=== PATIENT | male | born 1950 | race Caucasian/White ===

== ENCOUNTER → 2017-02-20 | Outpatient (CLI) | payer MEDICARE, OTHER | LOC: MW.CHUR 08:00 | PROVIDERS: ATTEND Urology | DX: Z71.89 Other specified counseling (principal) ==

== ENCOUNTER 2018-03-08 09:28 | Day surgery (SDC) | payer MEDICARE, OTHER ==
[~2018-03-08 09:28] MED LIST: Lactated Ringers 1,000 ML IV SCH
--- NOTE | 2018-03-08 10:53 | PCM.PREANE ---
Preanesthetic Assessment - Anesthesia/Transfusion/Family Hx Anesthesia History: Prior Anesthesia Without Reaction Other Type of Anesthesia Reaction Comment: "brother gets very confused after anesthesia" Family History of Anesthesia Reaction: No Transfusion History: No Prior Transfusion(s) - Review of Systems General: No Symptoms Pulmonary: No Symptoms Cardiovascular: No Symptoms Gastrointestinal: No Symptoms Neurological: No Symptoms Other: Reports: None - Physical Assessment NPO Status Date: 03/07/18 NPO Status Time: 22:00 O2 Sat by Pulse Oximetry: 96 Respiratory Rate: 17 Vital Signs: Last Vital Signs Temp 37.1 C 03/08/18 10:00 Pulse 55 L 03/08/18 10:00 Resp 17 03/08/18 10:00 BP 129/72 03/08/18 10:00 Pulse Ox 96 03/08/18 10:00 Height: 1.78 m Weight: 95.254 kg ASA Class: 3 Mental Status: Alert & Oriented x3 Airway Class: Mallampati = 1 Dentition: Reports: Normal Dentition ROM/Head Extension: Full Lungs: Clear to Auscultation, Normal Respiratory Effort Cardiovascular: Regular Rate, Regular Rhythm - Allergies Allergies/Adverse Reactions: Allergies Allergy/AdvReac Type Severity Reaction Status Date / Time varenicline [From Chantix] Allergy nightmares Verified 03/05/18 11:54 - Anesthesia Plan Pre-Op Medication Ordered: None - Acknowledgements Anesthesia Type Planned: MAC Pt an Appropriate Candidate for the Planned Anesthesia: Yes Alternatives and Risks of Anesthesia Discussed w Pt/Guardian: Yes Pt/Guardian Understands and Agrees with Anesthesia Plan: Yes Additional Comments: PMH: CAD, stent placement january 2017, without predceeding AMI. Stopped plavix 1 wk ago, continued aspirin, last dose 80 mg laST NIGHT. aDDITIONAL pmh: HLD, PreAnesthesia Questionnaire - Past Health History Medical/Surgical History: Denies Medical/Surgical History HEENT History: Reports: None Cardiovascular History: Reports: High Cholesterol Respiratory History: Reports: None Gastrointestinal History: Reports: Colon Polyp, Diverticulosis Other Gastrointestinal History: hx tubulovillous adenomatous polyp Genitourinary History: Reports: Other (See Below) Other Genitourinary History: bladder cancer Musculoskeletal History: Reports: None Neurological History: Reports: None Psychiatric History: Reports: Panic Attack Other Psychiatric History: panic attack x1 over 3 yrs ago, none since Endocrine/Metabolic History: Reports: Obesity/BMI 30+ Hematologic History: Reports: None Immunologic History: Reports: None Oncologic (Cancer) History: Reports: Basal Cell Carcinoma, Bladder Other Oncologic History: hx of skin cancer removed from nose Dermatologic History: Reports: Other (See Below) - Past Surgical History Head Surgeries/Procedures: Reports: None HEENT Surgical History: Reports: None Cardiovascular Surgical History: Reports: Coronary Artery Stent Other Cardiovascular Surgeries/Procedures: stent placement january 2017 Respiratory Surgical History: Reports: None GI Surgical History: Reports: Appendectomy, Colonoscopy, Other (See Below) Other GI Surgeries/Procedures: hemmorhoidectomy Other Female Surgeries/Procedures: cystoprostatectomy radical, has ureostomy Male Surgical History: Reports: Cystectomy, Prostatectomy Endocrine Surgical History: Reports: None Neurological Surgical History: Reports: None Musculoskeletal Surgical History: Reports: Arthroscopic Knee Oncologic Surgical History: Reports: Other (See Below) Other Oncologic Surgeries/Procedures: Cystectomy with illeal diversion Dermatological Surgical History: Reports: Other (See Below) - SUBSTANCE USE Smoking Status *Q: Current Every Day Smoker Tobacco Use Within Last Twelve Months: Cigarettes Recreational Drug Use History: No - HOME MEDS Home Medications: Home Meds Aspirin 81 mg PO QAM 04/12/15 [History] Multivitamin [Multi-Vitamin Daily] 1 each PO QAM 04/12/15 [History] Acetaminophen [Tylenol Extra Strength] 2 tab PO ASDIRECTED PRN 03/05/18 [History ] Clopidogrel Bisulfate [Plavix] 75 mg PO DAILY 03/05/18 [History] Psyllium Husk/Aspartame [Metamucil [facility] Powder] 1 dose PO BEDTIME [History] Rosuvastatin Calcium 20 mg PO DAILY 03/05/18 [History] Sodium Fluoride/Potassium Nit [Prevident 5000 Enamel Protect] 1 dose PO ASDIRECTED 03/05/18 [History] - CURRENT (IN HOUSE) MEDS Current Meds: Current Medications Lactated Ringer's (Ringers, Lactated) 1,000 mls @ 125 mls/hr IV ASDIRECTED [facility] Last Admin: 03/08/18 10:20 Dose: 125 mls/hr
[2018-03-08] MEDS ORDERED: Lidocaine 2% 5 ML SDV ONE (11:24)
[2018-03-08] MEDS ORDERED: Midazolam 1 MG/ML 2 ML SDV ONE (11:25)
[2018-03-08] MEDS ORDERED: Propofol 200 MG/20 ML SDV ONE ×2 (11:25→11:54)
[2018-03-08] MEDS ORDERED: fentaNYL 100 MCG/2 ML SDV ONE (11:25)
[2018-03-08] MEDS ORDERED: Lactated Ringers 1,000 ML IV SCH (12:15)
--- NOTE | 2018-03-08 12:16 | PCM.OPNOTE ---
- General Post-Op/Procedure Note Date of Surgery/Procedure: 03/08/18 Operative Procedure(s): Colonoscopy with cold cecal, ascending colon, transverse colon and rectal polypectomies. Pre Op Diagnosis: History of tubulovillous adenomatous polyp. Post-Op Diagnosis: Cecal, ascending colon, transverse colon and rectal polyps Anesthesia Technique: MAC (ASA III) Primary Surgeon: Manolo West Condition: Good Free Text/Narrative:: Dictation [id number] CPT CODE [id number]
--- NOTE | 2018-03-08 12:34 | PCM.POSTAN ---
POST ANESTHESIA ASSESSMENT - MENTAL STATUS Mental Status: Alert, Oriented - VITAL SIGNS Pulse Rate: 54 SaO2: 94 Resp Rate: 12 Blood Pressure: 104/68 - RESPIRATORY Respiratory Status: Respiratory Rate WNL, Airway Patent, O2 Saturation Stable - CARDIOVASCULAR CV Status: Pulse Rate WNL, Blood Pressure Stable - GASTROINTESTINAL GI Status: No Symptoms - PAIN Pain Score: 0 - POST OP HYDRATION Hydration Status: Adequate & Stable
--- NOTE | 2018-03-08 13:05 | PCM48HPAN ---
Post Anesthesia Note - EVALUATION WITHIN 48HRS OF ANESTHETIC Vital Signs in Normal Range: Yes Patient Participated in Evaluation: Yes Respiratory Function Stable: Yes Airway Patent: Yes Cardiovascular Function Stable: Yes Hydration Status Stable: Yes Pain Control Satisfactory: Yes Nausea and Vomiting Control Satisfactory: Yes Mental Status Recovered: Yes Pulse Rate: 54 Resp Rate: 12 Blood Pressure: 104/68
--- NOTE | 2018-03-08 13:16 | OR ---
SURGEON: Manolo West M.D. DATE OF PROCEDURE: 03/08/2018 OPERATION PERFORMED: Colonoscopy with multiple cold polypectomies from the cecum, ascending colon, transverse colon, and rectum. ANESTHESIA: MAC. ASA CLASSIFICATION: III. PREOPERATIVE DIAGNOSIS: Personal history of colon polyps. POSTOPERATIVE DIAGNOSIS: Cecal, ascending colon, transverse colon, and rectal polyps. DESCRIPTION OF PROCEDURE: The patient was taken to the endoscopy room and positioned on the endoscopy table in the left lateral decubitus position. Time-out was called for appropriate identification of the patient and procedure. Monitored anesthesia care was provided. The colonoscope was inserted into the rectum and advanced with minimal difficulty to the cecum. The colonoscope was retroflexed in the cecum to visualize the ascending colon from below. The cecum was also identified by internal landmarks and external pressure. Once the colonoscope was straightened, one polyp was encountered in the cecum and this was removed with cold biopsy forceps. A second polyp was encountered in the ascending colon and removed with the cold biopsy forceps. The remainder of the ascending colon, hepatic flexure, proximal and mid transverse colon showed no tumors, polyps, diverticula. A third polyp was encountered in the distal transverse colon, likewise removed with cold biopsy forceps. The descending colon and sigmoid colon showed no tumors, polyps, diverticula, or angiodysplastic changes. A fourth polyp was encountered in the rectum and also removed with cold biopsy forceps. These were all sent separately for appropriate histologic analysis. Once the colonoscope was withdrawn to the rectum, it was retroflexed to visualize the anal orifice from above. No tumors, polyps, or acute hemorrhoidal changes were noted. The colonoscope was then straightened, the rectum aspirated, and the colonoscope removed. The patient tolerated the procedure well and was taken to recovery room in stable condition. DENIS ALMANZA /[id number]
[2018-03-08 13:42] VITALS: BP 129/72
== END 2018-03-08 13:00 | disposition home or self-care (01) ==
LOC: MW.SDS 09:28
PROVIDERS: ATTEND Surgery
DX: Z12.11 Encounter for screening for malignant neoplasm of colon (principal); D12.2 Benign neoplasm of ascending colon; D12.3 Benign neoplasm of transverse colon; D12.8 Benign neoplasm of rectum; K63.5 Polyp of colon; E78.00 Pure hypercholesterolemia, unspecified; E78.5 Hyperlipidemia, unspecified; E66.9 Obesity, unspecified; Z68.30 Body mass index [BMI] 30.0-30.9, adult; F17.210 Nicotine dependence, cigarettes, uncomplicated; Z79.02 Long term (current) use of antithrombotics/antiplatelets; Z79.82 Long term (current) use of aspirin; Z79.899 Other long term (current) drug therapy; Z88.8 Allergy status to other drugs, medicaments and biological substances; Z90.49 Acquired absence of other specified parts of digestive tract; Z95.5 Presence of coronary angioplasty implant and graft; Z98.890 Other specified postprocedural states; Z86.010 Personal history of colon polyps
CPT/HCPCS: 45380; J2250; J3010; J7120; J2704

== ENCOUNTER 2020-05-31 06:29 | Day surgery (SDC) | payer MEDICARE, OTHER ==
[2020-05-31] MEDS ORDERED: Lactated Ringers 1,000 ML IV SCH ×2 (07:00→08:45)
[2020-05-31] MEDS ORDERED: Propofol 200 MG/20 ML SDV ONE ×2 (07:06→08:05)
[2020-05-31] MEDS ORDERED: Midazolam 1 MG/ML 2 ML SDV ONE (07:06)
--- NOTE | 2020-05-31 07:18 | PCM.PREANE ---
Preanesthetic Assessment - Anesthesia/Transfusion/Family Hx Anesthesia History: Prior Anesthesia Without Reaction Other Type of Anesthesia Reaction Comment: "brother gets very confused after anesthesia" Family History of Anesthesia Reaction: No Transfusion History: No Prior Transfusion(s) Intubation History: Unknown - Review of Systems General: No Symptoms Pulmonary: No Symptoms Cardiovascular: No Symptoms Gastrointestinal: No Symptoms, Other (hyperplastic colon polyp 2 years ago) Neurological: No Symptoms Other: Reports: None - Physical Assessment Height: 5 ft 10 in Weight: 91.626 kg ASA Class: 3 Mental Status: Alert & Oriented x3 Airway Class: Mallampati = 2 Dentition: Reports: Normal Dentition, Missing Tooth/Teeth (bottom front x1) Thyro-Mental Finger Breadths: 3 Mouth Opening Finger Breadths: 3 ROM/Head Extension: Full Lungs: Clear to Auscultation, Normal Respiratory Effort Cardiovascular: Regular Rate, Regular Rhythm - Allergies Allergies/Adverse Reactions: Allergies Allergy/AdvReac Type Severity Reaction Status Date / Time bupropion [From Zyban] Allergy Cannot Verified 05/27/20 08:58 Remember varenicline [From Chantix] Allergy nightmares Verified 05/27/20 08:57 - Blood Blood Available: No - Anesthesia Plan Pre-Op Medication Ordered: None - Acknowledgements Anesthesia Type Planned: MAC Pt an Appropriate Candidate for the Planned Anesthesia: Yes Alternatives and Risks of Anesthesia Discussed w Pt/Guardian: Yes Pt/Guardian Understands and Agrees with Anesthesia Plan: Yes PreAnesthesia Questionnaire - Past Health History Medical/Surgical History: Denies Medical/Surgical History HEENT History: Reports: None Cardiovascular History: Reports: High Cholesterol Respiratory History: Reports: None Gastrointestinal History: Reports: Colon Polyp (2 years ago), Diverticulosis Other Gastrointestinal History: hx tubulovillous adenomatous polyp Genitourinary History: Reports: Other (See Below) Other Genitourinary History: bladder cancer Musculoskeletal History: Reports: Arthritis Neurological History: Reports: None Psychiatric History: Reports: None Endocrine/Metabolic History: Reports: None Hematologic History: Reports: Anemia Immunologic History: Reports: None Oncologic (Cancer) History: Reports: Basal Cell Carcinoma, Bladder Other Oncologic History: hx of skin cancer removed from nose Dermatologic History: Reports: Other (See Below) - Past Surgical History Head Surgeries/Procedures: Reports: None HEENT Surgical History: Reports: None Cardiovascular Surgical History: Reports: Coronary Artery Stent Other Cardiovascular Surgeries/Procedures: stent placement january 2017, last plavix on the 5th of this month Respiratory Surgical History: Reports: None GI Surgical History: Reports: Appendectomy, Colonoscopy, Other (See Below) Other GI Surgeries/Procedures: hemmorhoidectomy Other Female Surgeries/Procedures: cystoprostatectomy radical, has ureostomy Male Surgical History: Reports: Cystectomy (has indwelling cath), Prostatectomy Endocrine Surgical History: Reports: None Neurological Surgical History: Reports: None Musculoskeletal Surgical History: Reports: Arthroscopic Knee Oncologic Surgical History: Reports: Other (See Below) Other Oncologic Surgeries/Procedures: Cystectomy with illeal diversion Dermatological Surgical History: Reports: Other (See Below) - SUBSTANCE USE Smoking Status *Q: Current Every Day Smoker (1 ppd) Tobacco Use Within Last Twelve Months: Cigarettes Recreational Drug Use History: No - HOME MEDS Home Medications: Home Meds Aspirin 81 mg PO QAM 04/12/15 [History] Acetaminophen [Tylenol Extra Strength] 2 tab PO ASDIRECTED PRN 03/05/18 [History] Clopidogrel Bisulfate [Plavix] 75 mg PO DAILY 03/05/18 [History] Psyllium Husk/Aspartame [Metamucil [facility] Powder] 1 dose PO BEDTIME 03/05/18 [History] Rosuvastatin Calcium 20 mg PO DAILY 03/05/18 [History] - CURRENT (IN HOUSE) MEDS Current Meds: Current Medications Lactated Ringer's (Ringers, Lactated) 1,000 mls @ 125 mls/hr IV ASDIRECTED [facility] Discontinued Medications Midazolam HCl (Versed 1 Mg/Ml) Confirm Administered Dose 2 mg .ROUTE .STK-MED ONE Stop: 05/31/20 07:07 Propofol (Diprivan 20 Ml) Confirm Administered Dose 400 mg .ROUTE .STK-MED ONE Stop: 05/31/20 07:07
--- NOTE | 2020-05-31 08:33 | PCM.OPNOTE ---
- General Post-Op/Procedure Note Date of Surgery/Procedure: 05/31/20 Operative Procedure(s): Colonoscopy with cold transverse colon and rectal polypectomies. Pre Op Diagnosis: History of adenomatous polyps. History of diverticulosis. Post-Op Diagnosis: Transverse colon and rectal polyps. Sigmoid diverticulosis. Anesthesia Technique: MAC (ASA II) Primary Surgeon: Manolo West Condition: Good Free Text/Narrative:: DICTATION [id number] CPT CODE [id number]
--- NOTE | 2020-05-31 08:46 | PCM.POSTAN ---
POST ANESTHESIA ASSESSMENT - MENTAL STATUS Mental Status: Alert, Oriented - VITAL SIGNS Vital Signs: Last Vital Signs Temp 36.0 C L 05/31/20 08:27 Pulse 59 L 05/31/20 08:43 Resp 12 05/31/20 08:43 BP 109/70 05/31/20 08:43 Pulse Ox 95 05/31/20 08:43 - RESPIRATORY Respiratory Status: Respiratory Rate WNL, Airway Patent, O2 Saturation Stable - CARDIOVASCULAR CV Status: Pulse Rate WNL, Blood Pressure Stable - GASTROINTESTINAL GI Status: No Symptoms - PAIN Pain Score: 0 - POST OP HYDRATION Hydration Status: Adequate & Stable - OBSERVATIONS Free Text/Narrative:: No anesthesia problems
--- NOTE | 2020-05-31 09:09 | PCM48HPAN ---
Post Anesthesia Note - EVALUATION WITHIN 48HRS OF ANESTHETIC Vital Signs in Normal Range: Yes Patient Participated in Evaluation: Yes Respiratory Function Stable: Yes Airway Patent: Yes Cardiovascular Function Stable: Yes Hydration Status Stable: Yes Pain Control Satisfactory: Yes Nausea and Vomiting Control Satisfactory: Yes Mental Status Recovered: Yes Vital Signs: Last Vital Signs Temp 36.0 C L 05/31/20 08:27 Pulse 59 L 05/31/20 08:43 Resp 12 05/31/20 08:43 BP 109/70 05/31/20 08:43 Pulse Ox 95 05/31/20 08:43 - COMMENTS/OBSERVATIONS Free Text/Narrative:: No anesthesia problems
[2020-05-31 09:23] VITALS: BP 119/65; PULSE 56
[2020-05-31] MEDS ORDERED: ceFAZolin/Dextrose,Iso-Osmotic 2 GM/50 ML Duplex Bag IV ONE (12:32)
--- NOTE | 2020-05-31 15:11 | OR ---
SURGEON: Manolo West M.D. DATE OF PROCEDURE: 05/31/2020 OPERATION PERFORMED: Colonoscopy with cold transverse colon and proximal rectal polypectomy. PRIMARY SURGEON: Manolo West M.D. ANESTHESIA: MAC. ASA CLASSIFICATION: II. PREOPERATIVE DIAGNOSIS: Personal history of colon polyps with history of both tubulovillous and tubular adenomas. POSTOPERATIVE DIAGNOSES: 1. Transverse colon polyp. 2. Proximal rectal polyp. 3. Sigmoid diverticulosis. DESCRIPTION OF PROCEDURE: The patient was taken to the endoscopy room and positioned on the endoscopy table in the left lateral decubitus position. Time-out was called for appropriate identification of the patient and procedure. Monitored anesthesia care was provided. The colonoscope was inserted into the rectum and advanced with moderate difficulty to the cecum. The cecum was identified by internal landmarks and external pressure. The colonoscope was retroflexed to visualize the ascending colon from below, then straightened and slowly withdrawn. The cecum, ascending colon, proximal and mid transverse colon showed no tumors, polyps, diverticula, or angiodysplastic changes. One small polyp was encountered in the mid to distal transverse colon and removed with cold biopsy forceps. The splenic flexure, descending colon, and sigmoid colon showed no tumors, polyps, or inflammatory changes. A few scattered sigmoid diverticula were noted. A 2nd polyp was encountered in the proximal rectum and likewise removed with the cold biopsy forceps and sent for separate histologic analysis. The colonoscope was withdrawn to the rectum and retroflexed to visualize the anal orifice from above. No tumors, polyps, or acute hemorrhoidal changes were noted. The colonoscope was then straightened, the rectum aspirated, and the colonoscope removed. The patient tolerated the procedure well and was taken to recovery room in stable condition. DENIS / CAMI /[id number]
== END 2020-05-31 09:15 | disposition home or self-care (01) ==
LOC: MW.SDS 06:29
PROVIDERS: ATTEND Surgery
DX: Z12.11 Encounter for screening for malignant neoplasm of colon (principal); D12.8 Benign neoplasm of rectum; D12.3 Benign neoplasm of transverse colon; K57.30 Diverticulosis of large intestine without perforation or abscess without bleeding; E78.00 Pure hypercholesterolemia, unspecified; F17.210 Nicotine dependence, cigarettes, uncomplicated; E78.5 Hyperlipidemia, unspecified; E66.9 Obesity, unspecified; Z95.5 Presence of coronary angioplasty implant and graft; Z68.28 Body mass index [BMI] 28.0-28.9, adult; Z85.51 Personal history of malignant neoplasm of bladder; Z90.49 Acquired absence of other specified parts of digestive tract; Z88.8 Allergy status to other drugs, medicaments and biological substances; Z98.890 Other specified postprocedural states; Z79.899 Other long term (current) drug therapy; Z79.82 Long term (current) use of aspirin; Z86.010 Personal history of colon polyps
CPT/HCPCS: 45380; J0690; J2250; J2704; J7120; 88305

== ENCOUNTER 2025-02-23 08:16 | Day surgery (SDC) | payer MEDICARE, OTHER ==
[2025-02-23] MEDS: Lactated Ringers 1,000 ML IV SCH (08:55)
[2025-02-23] MEDS ORDERED: propofoL 500 MG/50 ML 50 ML ONE (09:21)
[2025-02-23] MEDS ORDERED: Lidocaine 2% 5 ML SDV ONE (09:21)
[2025-02-23] MEDS ORDERED: Sodium Chloride 0.9% 20 ML ONE (09:36)
[2025-02-23] MEDS ORDERED: dexmedeTOMIDine HCl 200 MCG/2 ML SDV ONE (09:36)
[2025-02-23] MEDS ORDERED: Propofol 200 MG/20 ML SDV ONE (10:49)
[2025-02-23] MEDS ORDERED: Lactated Ringers 1,000 ML IV SCH (11:15)
[2025-02-23 11:20] VITALS: PULSE 50
[2025-02-23 11:44] VITALS: BP 122/74
== END 2025-02-23 12:00 | disposition home or self-care (01) ==
LOC: MW.SDS 08:16
PROVIDERS: ATTEND Surgery
DX: Z12.11 Encounter for screening for malignant neoplasm of colon (principal); D12.3 Benign neoplasm of transverse colon; D12.2 Benign neoplasm of ascending colon; D12.5 Benign neoplasm of sigmoid colon; K57.30 Diverticulosis of large intestine without perforation or abscess without bleeding; E78.00 Pure hypercholesterolemia, unspecified; E66.9 Obesity, unspecified; F17.210 Nicotine dependence, cigarettes, uncomplicated; Z88.8 Allergy status to other drugs, medicaments and biological substances; Z79.82 Long term (current) use of aspirin; Z68.26 Body mass index [BMI] 26.0-26.9, adult; Z79.899 Other long term (current) drug therapy; Z86.0100 Personal history of colon polyps, unspecified
CPT/HCPCS: 45380; J2003; J2704; J7120; 00811; 99100; J3490